=== PATIENT | male | born 1945 | race Caucasian/White ===

== ENCOUNTER 2018-06-25 14:45 | Emergency (ER) | payer MEDICARE, SELFPAY ==
[2018-06-25 14:50] VITALS: BP 153/93; PULSE 67; RESP 18; TEMP 36.9; O2SAT 95
--- NOTE | 2018-06-25 15:22 | W.ED.GENAD ---
Discharge Plan Disposition Patient Disposition: HOME Condition: Good Discharge Details Chief Complaint: Cellulitis Clinical Impression: Cellulitis, Bites and stings, insect, Infected insect bite or sting, Infected insect bite Primary Care Provider: Megha Quintana ED Provider: Vega Smith Home Meds and New Rx's Prescriptions: New cephalexin [Keflex] 500 mg capsule 500 mg PO QID Qty: 20 RF: 0 Continue aspirin [Ecotrin Low Strength] 81 MG tablet,delayed release (DR/EC) 81 mg PO DAILY RF: 0 acetaminophen [Tylenol Extra Strength] 500 MG tablet 500 mg PO q6hr prn RF: 0 doxazosin [Cardura] 1 MG tablet 1 mg PO HS Qty: 90 RF: 4 atorvastatin 10 MG tablet 10 mg PO QPM Qty: 90 RF: 4 allopurinol 100 MG tablet 2 tab PO DAILY Qty: 180 RF: 4 verapamil 240 MG tablet extended release 240 mg PO DAILY Qty: 90 RF: 4 losartan 100 mg Tablet 100 mg PO DAILY RF: 0 Discharge Instructions Instructions: Cellulitis (ED) Additional Instructions: Feel free to return to the emergency department for any new or significant worsening of symptoms otherwise take your antibiotics as prescribed and until fully completed. Follow-up with your primary care for reassessment if not improving after being on the antibiotics for 3 days. Referrals: [facility] [Outside] (Follow-up with your primary care provider as needed for reassessment if not improving in the next 3 days) Discharge Data Discharge Date/Time-TO BE ENTERED AT DEPARTURE: 06/25/18 15:52 Medical Decision Making MDM Narrative Medical decision making narrative: Patient presenting to the emergency department status post 3 days bee sting to the left hand. Initially he states that he had some swelling up the forearm which improved yesterday with but then beginning today he noticed some redness to the area. Patient states that the skin feels itchy and hot but overall his symptoms are mild. Patient denies any difficulty breathing, chest pain, syncope, swelling to lips or tongue or throat. Examination of the area does show significant erythematous skin changes to the ulnar aspect of the hand wrist and forearm with warmth. There is concern for secondary cellulitis after bee sting so patient was placed on Keflex 4 times daily for 5 days and informed to return immediately for any new or worsening symptoms otherwise to follow-up with his primary care provider for reassessment as needed. Patient is otherwise stable with no acute distress so I do not feel that any labs times are warranted at this time. after discussion of diagnosis and plan of care patient states no further needs, question or concern. HPI - General Adult General Mode of arrival: ambulatory. Date/Time Provider Initiated Documentation: 06/25/18 15:06. Limitations to Documentation: no limitations. Information obtained by: patient and family. History of Present Illness 73 year old M presents to the emergency department with the chief complaint of Left hand based, described as mild, with intensity rated at 2. Quality is described as other (Itching), and is localized to the upper extremity. Patient proximal. Patient started experiencing this day(s) (3) and it has been intermittent. No relieving factors improve symptom(s), No exacerbating factors reported . Patient notes no other symptoms.. Patient did receive the following treatments prior to arrival, other (Hydrocortisone cream) Related Data Home Medications Medication Instructions Recorded Confirmed acetaminophen [Tylenol Extra 500 mg PO q6hr prn 01/03/13 06/25/18 Strength] aspirin [Ecotrin Low Strength] 81 mg PO DAILY 01/03/13 06/25/18 losartan 100 mg PO DAILY 06/25/18 06/25/18 Previous Rx's Medication Instructions Recorded cephalexin [Keflex] 500 mg PO QID #20 cap 06/25/18 Allergies Allergy/AdvReac Type Severity Reaction Status Date / Time hydrochlorothiazide AdvReac gout Unverified 06/25/18 14:54 lisinopril AdvReac cough Unverified 06/25/18 14:54 niacin AdvReac feels very Unverified 06/25/18 14:54 hot General Stated Complaint: Cellulitis SISI: 4 Review of Systems Constitutional Denies chills and Denies fever(s) ENT Denies lip swelling, Denies throat swelling and Denies tongue swelling Cardiovascular Denies chest pain, Denies syncope and Denies dyspnea Respiratory Denies cough, Denies dyspnea, Denies stridor and Denies wheezing Integumentary/Breasts Reports erythema (ulnar aspect of left hand streaking from hand to mid forearm) Neurologic Denies syncope Allergic/Immunologic Denies urticaria, Denies lip swelling, Denies throat swelling, Denies tongue swelling and Denies wheezing PFSH Family History Mother Personal history of malignant neoplasm Father Personal history of malignant neoplasm Brother Personal history of malignant neoplasm Grandfather Diabetes Grandfather No problems noted. Grandmother No problems noted. Grandmother No problems noted. Social History Smoking/Tobacco Use Status: Former Tobacco Use Surgical History Nephrectomy Prostatectomy (09/06/04) Repair of inguinal hernia Exam Const General: no acute distress Orientation: alert, awake and oriented x3 HENMT Head: normal to inspection Ears: hearing grossly normal bilaterally General nose exam: external nose normal Face and sinus: normal facial exam Mouth: oral mucosae normal Throat: posterior oropharynx normal Resp Effort & Inspection: normal respiratory effort, able to speak in complete sentences, no audible wheezes and no respiratory distress Auscultation: clear to auscultation bilaterally Cardio Rate: regular rate Rhythm: regular rhythm Heart Sounds: S1 normal and S2 normal Skin General skin exam: erythema, no fluctuance and no induration Trauma: lacerations and/or abrasions noted Nails: normal Neuro General: alert, awake, oriented x3 and gait normal Course Vital Signs Temperature 36.9 C 06/25/18 14:50 Pulse 67 06/25/18 14:50 Respiratory Rate 18 06/25/18 14:50 Blood Pressure 153/93 H 06/25/18 14:50 Pulse Oximetry 95 06/25/18 14:50 Temperature 36.9 C 06/25/18 14:50 Pulse 67 06/25/18 14:50 Respiratory Rate 18 06/25/18 14:50 Blood Pressure 153/93 H 06/25/18 14:50 Pulse Oximetry 95 06/25/18 14:50
[2018-06-25] MEDS: Cephalexin 500 MG CAP PO (15:47)
[2018-06-25 15:52] VITALS: BP 153/93; PULSE 67; RESP 18; TEMP 36.9; O2SAT 95
== END 2018-06-25 15:52 | disposition home or self-care (01) ==
PROVIDERS: Emergency Provider Nurse Practitioner Family; PCP Family Medicine
DX: L03.114 Cellulitis of left upper limb (principal); T63.441A Toxic effect of venom of bees, accidental (unintentional), initial encounter
CPT/HCPCS: 99283

== ENCOUNTER 2024-09-17 09:41 | Emergency (ER) | payer MEDICARE, SELFPAY ==
[2024-09-17 09:45] VITALS: BP 170/68; PULSE 54; RESP 16; TEMP 36.6; O2SAT 98
--- NOTE | 2024-09-17 09:46 | ED.GENADUL_ITS ---
Discharge Plan Disposition Patient Disposition: Home Condition: Stable Discharge Details Clinical Impression: Foreign body of ear, right Primary Care Provider: Megha Quintana ED Provider: Mally Thorpe Home Meds and New Rx's Prescriptions: No Action aspirin [Ecotrin Low Strength] 81 MG tablet,delayed release (DR/EC) 81 mg PO DAILY acetaminophen [Tylenol Extra Strength] 500 MG tablet 500 mg PO q6hr prn doxazosin [Cardura] 1 MG tablet 1 mg PO HS Qty: 90 Rx Instructions: 1 TAB HS atorvastatin 10 MG tablet 10 mg PO QPM Qty: 90 Rx Instructions: 1 TAB QPM allopurinol 100 MG tablet 2 tab PO DAILY Qty: 180 verapamil 240 MG tablet extended release 240 mg PO DAILY Qty: 90 losartan 100 mg Tablet 100 mg PO DAILY cephalexin [Keflex] 500 mg capsule 500 mg PO QID Qty: 20 0RF Discharge Instructions Instructions: Foreign Body in Ear (DC) Additional Instructions: You were seen in the emergency department today for removal of a foreign body in your right ear. This was performed and there is no evidence of injury to your ear canal. Please continue all of your home medications as recommended by your outpatient providers, and you should follow-up with your outpatient providers at any scheduled visits. Please be on the look out for any irritation in the ear, changes in hearing, or fever. We always recommend that you do not use anything in the ear canal such as Q-tips or other instruments, to avoid damage to the eardrum and canal. Thank you for allowing us to be part of your care. HPI General Mode of arrival: ambulatory . Date/Time Provider Initiated Documentation: 09/17/24 09:46 . Limitations to Documentation: no limitations . Information obtained by: patient, family and old records reviewed . HPI Narrative: HPI: This is an 79-year-old male patient with a past medical history significant for hypertension, hyperlipidemia, renal cell carcinoma, who is presenting for evaluation of foreign body in his right ear. The patient reports he was using headphones with a detachable silicone, remove them from his ear but the silicone Became lodged in his right external ear canal. This happened half an hour prior to arrival at our facility, the patient did not attempt to remove it due to fear of watching it further inside. He reports he is not experiencing any changes in his hearing, pain, and prior to this event he was in his normal state of health. Exam: Gen: Awake and alert, in no apparent distress HEENT: Non-icteric sclera. The patient's right ear canal has a visible black silicone earbud, which is easily removed with alligator forceps. He has no evidence of ear canal irritation, TM is intact. Neck: Supple Lungs: No apparent respiratory distress, normal respiratory effort. CV: Appears well perfused Abdomen: Non-distended MSK: Moves 4 extremities without apparent limitation in ROM Skin: Visualized skin without rashes, cyanosis. Neuro: Normal Gait, no obvious focal deficits or facial asymmetry. Speaks in full, clear sentences. Psych: Appropriate for situation. MDM: In brief, this is an 79-year-old male patient presenting for evaluation of a foreign body in the ear. This was removed atraumatically. Differentials that I also considered include but are not limited to external ear injury, otitis externa, TM rupture, though this is not consistent with the physical examination after removal. ED Course: As noted, alligator forceps were used to atraumatically remove the earbud from the ear canal. On reassessment the patient remains in his normal state of health without acute complaint. Hearing is preserved and he is not experiencing any pain. I do not see indication for antibiotics. The patient is noted to be mildly hypertensive, has a history of same and was counseled to continue his home medications as prescribed. At this time, the patient has had a full medical evaluation and is safe for discharge to home. They are hemodynamically stable, ambulatory, and tolerating PO. They are understanding of the follow-up plan and return precautions. They left our facility without incident. Mally Thorpe MD Related Data Home Medications ?Medication ?Instructions ?Recorded ?Confirmed acetaminophen 500 mg tablet 500 mg PO q6hr prn 01/03/13 06/25/18 (Tylenol Extra Strength) aspirin 81 mg tablet,delayed 81 mg PO DAILY 01/03/13 06/25/18 release (Ecotrin Low Strength) doxazosin 1 mg tablet (Cardura) 1 mg PO HS #90 tab-caps 02/25/15 allopurinol 100 mg tablet 2 tab PO DAILY #180 tabs 09/05/15 atorvastatin 10 mg tablet 10 mg PO QPM #90 tab-caps 09/05/15 verapamil 240 mg tablet,extended 240 mg PO DAILY #90 tab-caps 09/05/15 release cephalexin 500 mg capsule (Keflex) 500 mg PO QID #20 caps 06/25/18 losartan 100 mg tablet 100 mg PO DAILY 06/25/18 06/25/18 Previous Rx's ?Medication ?Instructions ?Recorded cephalexin 500 mg capsule (Keflex) 500 mg PO QID #20 caps 06/25/18 Allergies Allergy/AdvReac Type Severity Reaction Status Date / Time hydrochlorothiazide AdvReac gout Unverified 09/17/24 09:49 lisinopril AdvReac cough Unverified 09/17/24 09:49 niacin AdvReac feels very Unverified 09/17/24 09:49 hot General SISI: 4 Procedures FB Removal Ear Location: ear canal (R) Foreign Body Suspected: other (silicone ear bud/headphone) TM intact pre-procedure: yes Foreign Body Removed: yes Foreign Body Removal Technique: forceps Tympanic Membrane Intact: Yes Patient Tolerated Procedure: well and no complications Medical Decision Making Quality:SDOH Health Related Social Needs: No Data to Display PFSH All Active Problems (Updated 09/17/24 @ 09:47 by Mally Thorpe MD) Foreign body of ear, right (Acute) Surgical History (Updated 08/09/18 @ 14:35 by [facility]) Prostatectomy (09/06/04) Nephrectomy LEFT Repair of inguinal hernia 03/02/16 LEFT Family History Mother Personal history of malignant neoplasm Lung Father Personal history of malignant neoplasm Lung Brother Personal history of malignant neoplasm COLON Grandfather Diabetes Grandfather No problems noted. Grandmother No problems noted. Grandmother No problems noted. Social History Smoking/Tobacco Use Status: Former Tobacco Use Smoking risk assessment performed?: Yes Drug use: Never
[2024-09-17 09:51] VITALS: BP 170/68; PULSE 54; RESP 16; TEMP 36.6; O2SAT 98
== END 2024-09-17 09:54 | disposition home or self-care (01) ==
LOC: ER 10:15
PROVIDERS: Emergency Provider Emergency Medicine; PCP Family Medicine
DX: T16.1XXA Foreign body in right ear, initial encounter (principal); I10 Essential (primary) hypertension; E78.5 Hyperlipidemia, unspecified; Z79.82 Long term (current) use of aspirin; Z87.891 Personal history of nicotine dependence; W44.G1XA Audio device entering into or through a natural orifice, initial encounter; Y93.89 Activity, other specified
CPT/HCPCS: 99283